=== PATIENT | female | born 1965 | race Caucasian/White ===

== ENCOUNTER → 2017-01-27 | Outpatient (CLI) | payer BC ==
--- NOTE | 2017-01-27 12:45 | MAMMOGRAPHY REPORT ---
BILATERAL DIGITAL SCREENING MAMMOGRAM TOMOSYNTHESIS WITH CAD: 01/27/2017 CLINICAL HISTORY: Routine screening. Patient has no complaints. TECHNIQUE: Breast tomosynthesis in addition to standard 2D mammography was performed. Current study was also evaluated with a Computer Aided Detection (CAD) system. COMPARISON: Comparison is made to exams dated: 01/23/2016 mammogram, 01/18/2015 mammogram, 04/26/2013 patito mogram, 07/25/2010 mammogram, 05/14/2011 mammogram - [facility], and 05/11/2007. BREAST COMPOSITION: There are scattered areas of fibroglandular density in both breasts. FINDINGS: An 8 mm oval mass in the approximate 8:00 anterior right breast is increasingly prominent c ompared to prior exams. Although this could represent fluctuating cyst, definitive characterization with spot compression tomosynthesis views and targeted ultrasound are recommended. There is a stable 2.5 cm mass with associated coarse calcification in the central left breast. No oth er suspicious mass, architectural distortion or cluster of microcalcifications is seen. IMPRESSION: ACR BI-RADS CATEGORY 0: INCOMPLETE EVALUATION: NEED ADDITIONAL IMAGING EVALUATION The increasingly prominent 8mm oval mass in the 8:00 right breast in the right breast needs additiona l evaluation. The patient will be called to schedule an appointment. Approximately 10% of breast cancers are not detected with mammography. A negative mammographic report should not delay biopsy if a clinically suggestive mass is present. Guillermina Stein M.D. ay/:01/27/2017 08:55:23 Assembler Knife: Cesia JENKINS(R)(M), [facility] letter sent: Addl Imaging 0 BI-RADS Code: ACR BI-RADS Category 0: Incomplete Evaluation: Need Additional Imaging Evaluation
== END | disposition home or self-care (01) ==
LOC: C.MAMM 07:15
PROVIDERS: ATTEND Family Medicine
DX: Z12.31 Encounter for screening mammogram for malignant neoplasm of breast (principal)

== ENCOUNTER → 2017-02-04 | Outpatient (CLI) | payer BC ==
--- NOTE | 2017-02-04 13:27 | MAMMOGRAPHY REPORT ---
UNILATERAL RIGHT DIGITAL DIAGNOSTIC MAMMOGRAM TOMOSYNTHESIS AND TARGETED RIGHT ULTRASOUND: 02/04/2017 CLINICAL HISTORY: Call back from screening mammography for a possible new 8 mm mass in the lateral ri ght breast. TECHNIQUE: Spot compression right CC and MLO to the digital and tomosynthesis images were obtained. COMPARISON: Comparison is made to exams dated: 01/27/2017 mammogram, 01/23/2016 mammogram, 01/18/2015 patito mogram, 04/26/2013 mammogram, 05/14/2011 mammogram, and 08/02/2010 mammogram - [facility]. BREAST COMPOSITION: There are scattered areas of fibroglandular density in the right breast. FINDINGS: The additional spot compression views and tomosynthesis images demonstrate persistence of a 5.7 x 6.5 x 8.2 mm mass in the approximate 9:00 middle to anterior right breast. No associated arc hitectural distortion or microcalcification. Further evaluation with ultrasound was performed. Real-time high-resolution ultrasound was performed in the 8:00 to 10:00 axes of the right breast. In the 9:00 axis, 27 m from the nipple, there is an oval parallel circumscribed anechoic cyst with lokesh t posterior acoustic enhancement appreciated. It measures 6.1 x 3.3 x 7.8 mm. This correlates well in size, shape and location of the mammographic mass and is benign. IMPRESSION: ACR BI-RADS CATEGORY 2: BENIGN, TARGETED ULTRASOUND ACR BI-RADS CATEGORY 2: BENIGN The 8 mm mass in the upper outer quadrant of the right breast correlates with a benign anechoic simpl e cyst on ultrasound. There is no mammographic or targeted sonographic evidence of malignancy. Retur n to annual mammogram screening schedule is recommended. The patient has been verbally notified of t he results. Approximately 10% of breast cancers are not detected with mammography. A negative mammographic report should not delay biopsy if a clinically suggestive mass is present. Guillermina Stein M.D. ay/:02/04/2017 08:48:36 Animal Tech: Corinne Navarro, [facility] letter sent: Normal 1/2 BI-RADS Code: ACR BI-RADS Category 2: Benign Ultrasound BI-RADS: ACR BI-RADS Category 2: Benign
== END | disposition home or self-care (01) ==
LOC: C.MAMM 08:24
PROVIDERS: ATTEND Family Medicine
DX: N63 Unspecified lump in breast (principal)